=== PATIENT | female | born 1955 | race Caucasian/White ===

== ENCOUNTER 2018-08-12 06:38 | Emergency (ER) | END 2018-08-12 08:43 | disposition home or self-care (01) ==

== ENCOUNTER 2019-06-04 16:37 | Emergency (ER) | payer MEDICARE, OTHER ==
[~2019-06-04] VITALS: Ht 154.9 cm; Wt 52.3 kg
[~2019-06-04 16:37] MED LIST: ACYC800T PO; BACTDS PO; CEPH500C PO; IBUP-1542 PO; MONT10TA21 PO; ONDA4TAB35 PO; ONDA4TAB8 PO
[2019-06-04 16:45] VITALS: BP 127/69; PULSE 73; RESP 18; Ht 154.9 cm; Wt 52.3 kg
[2019-06-04] MEDS ORDERED: IBUPROFEN 800 MG TAB PO ONE (17:30)
== END 2019-06-04 18:11 | disposition home or self-care (01) ==
LOC: FTE 16:37
DX: S50.312A Abrasion of left elbow, initial encounter (principal); J45.909 Unspecified asthma, uncomplicated; W18.39XA Other fall on same level, initial encounter; Y92.9 Unspecified place or not applicable; Z96.642 Presence of left artificial hip joint
CPT/HCPCS: 73502; 73510